=== PATIENT | male | born 1960 | race Caucasian/White ===

== ENCOUNTER 2018-01-18 08:13 | Emergency (ER) | payer OTHER ==
[~2018-01-18] VITALS: Ht 170.2 cm; Wt 88.0 kg
[2018-01-18 08:18] VITALS: BP 143/92
[2018-01-18 09:29] LABS: Basophils # (auto) 0.1 uL; Basophils % (auto) 0.5 % (0.0-2.0); Eosinophils # (auto) 0.1 uL; Eosinophils % (auto) 0.7 % (0.0-7.0); Hematocrit 45.2 % (41.0-53.0); Lymphocytes % (auto) 10.1 % (10.0-50.0); Mean Corpuscular Hemoglobin 28.5 pg (28.0-32.0); Mean Corpuscular Hgb Conc. 33.2 g/dL (32.0-36.0); Mean Corpuscular Volume 85.8 fL (80.0-100.0); Monocytes # (auto) 0.7 uL; Monocytes % (auto) 7.2 % (0.0-12.0); Neutrophils # (auto) 7.7 uL; Neutrophils % (auto) 81.5 % (37.0-80.0); Nucleated Red Blood Cells % 0.1 %; Platelet Count (auto) 379 10^3/uL (140-450); Red Blood Cells 5.27 10^6/uL (4.5-5.90); Red Cell Distribution Width 13.3 % (11.8-14.3); White Blood Cell 9.4 10^3/uL (4.4-10.8)
[2018-01-18 09:50] LABS: BUN/Creatinine Ratio 12.9; Bilirubin, Total 0.9 mg/dL (0.2-1.0); Calcium 9.4 mg/dL (8.5-10.1); Magnesium 2.3 mg/dL (1.6-2.6); Potassium 4.3 mmol/L (3.5-5.1); Total Protein 7.3 g/dL (6.4-8.2)
== END 2018-01-18 12:01 | disposition left against medical advice (07) ==
LOC: ER 08:13
DX: R10.13 Epigastric pain (principal)
CPT/HCPCS: 36415; 71046; 80053; 83735; 85025; 93005

== ENCOUNTER 2018-02-06 10:41 | Inpatient (IN) | payer OTHER ==
[~2018-02-06] VITALS: Ht 177.8 cm; Wt 86.4 kg
[2018-02-06] MEDS ORDERED: SODIUM CHLORIDE 0.9% 1,000 ML IVB ONE (11:06)
[2018-02-06] MEDS ORDERED: PANTOPRAZOLE 40 MG/10 ML VIAL IV STA (11:06)
[2018-02-06] MEDS ORDERED: MORPHINE SULFATE 4 MG/ML SYR/VIAL IV ONE (11:15)
[2018-02-06] MEDS ORDERED: METOCLOPRAMIDE HCL 5MG/ml INJ 2ml VIAL IV ONE (11:15)
[2018-02-06 11:32] LABS: Basophils # (auto) 0.1 uL; Basophils % (auto) 0.3 % (0.0-2.0); Eosinophils # (auto) 0 uL; Hematocrit 47.4 % (41.0-53.0); Hemoglobin 15.9 g/dL (13.5-17.5); Lymphocytes # (auto) 1.1 uL; Lymphocytes % (auto) 5.1 % (10.0-50.0); Mean Corpuscular Hemoglobin 28.5 pg (28.0-32.0); Mean Corpuscular Hgb Conc. 33.4 g/dL (32.0-36.0); Mean Corpuscular Volume 85.2 fL (80.0-100.0); Monocytes # (auto) 1.3 uL; Monocytes % (auto) 5.8 % (0.0-12.0); Neutrophils # (auto) 19.8 uL; Neutrophils % (auto) 88.8 % (37.0-80.0); Nucleated Red Blood Cells % 0.2 %; Platelet Count (auto) 435 10^3/uL (140-450); Red Blood Cells 5.57 10^6/uL (4.5-5.90); Red Cell Distribution Width 13.3 % (11.8-14.3); White Blood Cell 22.3 10^3/uL (4.4-10.8)
[2018-02-06 11:46] LABS: Albumin 4.4 g/dL (3.4-5.0); BUN/Creatinine Ratio 9.4; Bilirubin, Total 1.1 mg/dL (0.2-1.0); Calcium 9.7 mg/dL (8.5-10.1); Potassium 3.7 mmol/L (3.5-5.1); Total Protein 8.2 g/dL (6.4-8.2)
[2018-02-06] MEDS ORDERED: DEXTROSE (50%) 50ML SYRG IV PRN (16:45)
[2018-02-06] MEDS ORDERED: traMADol HCL 50 MG TAB PO PRN (16:45)
[2018-02-06] MEDS ORDERED: DOCUSATE SOD 100 MG CAP PO PRN (17:00)
[2018-02-06] MEDS ORDERED: cefTRIAXone 1GM/10ml IVPUSH 10 ML IV ONE (17:00)
[2018-02-06] MEDS ORDERED: ONDANSETRON HCL 4 MG/2 ML VIAL IV PRN (17:00)
[2018-02-06] MEDS ORDERED: ACETAMINOPHEN 325 MG TAB PO PRN (17:00)
[2018-02-06] MEDS: MORPHINE SULFATE 4 MG/ML SYR/VIAL IV PRN ×2 (17:38→21:46)
[2018-02-06] MEDS: SODIUM CHLORIDE 0.9% 1,000 ML IV SCH (17:44)
[2018-02-06] MEDS: LIDOCAINE 5% TOPICAL PATCH TOP SCH (17:53)
[2018-02-06] MEDS: ASCORBIC ACID 500 MG TAB PO SCH ×2 (17:53→21:46)
[2018-02-06] MEDS: MULTIPLE VITAMIN TAB PO SCH (17:53)
[2018-02-06] MEDS: ACCU-CHEK COMFORT CURVE STRIP VI SCH ×2 (17:59→21:32)
[2018-02-06 18:00] LABS: INR 0.95 (0.9-1.15); Prothrombin Time 10.3 sec (9.37-12.3)
[2018-02-06] MEDS: InsuLIN REG 1unit/0.01ml Soln (100units/ml) SC SCH ×2 (18:00→21:32)
[2018-02-06] MEDS: metroNIDAZOLE 500MG/100ML 100 ML IV SCH ×2 (18:04→23:31)
[2018-02-06 18:12] LABS: Lactic Acid w/Reflex 2.9 mmol/L (0.4-2.0)
[2018-02-06 20:08] LABS: Urine Bacteria FEW /hpf (None Seen); Urine Blood Negative /uL (Negative); Urine Hyaline Cast FEW /lpf (0 - 2); Urine Mucus MODERATE (None Seen); Urine Specific Gravity 1.029 (1.001-1.035); Urine WBC 4 /hpf (0 - 3)
[2018-02-06 20:57] VITALS: BP 131/76
[2018-02-06] MEDS: FAMOTIDINE 20 MG TAB PO SCH (21:45)
[2018-02-06] MEDS: PREGABALIN CAPSULE 75 MG CAP PO SCH (21:45)
[2018-02-06] MEDS: CARISOPRODOL 350 MG TAB PO SCH (21:46)
[2018-02-06 22:00] VITALS: BP 131/76
[2018-02-06 22:02] LABS: Lactic Acid w/Reflex 2.4 mmol/L (0.4-2.0)
[2018-02-06] MEDS: ALBUTEROL SULF 2.5 MG/0.5ML(0.5%) NEB SOLN NEB SCH (22:32)
[2018-02-06] MEDS: ALPRAZolam 0.5 MG TAB PO PRN (23:32)
[2018-02-07 01:13] VITALS: BP 131/76
[2018-02-07] MEDS: SODIUM CHLORIDE 0.9% 1,000 ML IV SCH ×4 (01:13→23:37)
[2018-02-07 05:00] VITALS: BP 127/78
[2018-02-07] MEDS: metroNIDAZOLE 500MG/100ML 100 ML IV SCH ×4 (06:02→23:31)
[2018-02-07] MEDS: PREGABALIN CAPSULE 75 MG CAP PO SCH ×3 (06:02→21:53)
[2018-02-07] MEDS ORDERED: PNEUMOCOCCAL VACC POLYS 25 MCG/0.5 ML VIAL IM ONE (06:30)
[2018-02-07] MEDS: MORPHINE SULFATE 4 MG/ML SYR/VIAL IV PRN ×3 (06:39→20:11)
[2018-02-07 06:43] LABS: Basophils # (auto) 0 uL; Basophils % (auto) 0.2 % (0.0-2.0); Eosinophils # (auto) 0 uL; Eosinophils % (auto) 0.2 % (0.0-7.0); Hematocrit 44.8 % (41.0-53.0); Hemoglobin 15.2 g/dL (13.5-17.5); Lymphocytes # (auto) 1.9 uL; Mean Corpuscular Hemoglobin 29.1 pg (28.0-32.0); Mean Corpuscular Volume 85.7 fL (80.0-100.0); Monocytes # (auto) 2.2 uL; Monocytes % (auto) 11.2 % (0.0-12.0); Neutrophils # (auto) 15.4 uL; Neutrophils % (auto) 78.4 % (37.0-80.0); Platelet Count (auto) 383 10^3/uL (140-450); Red Blood Cells 5.23 10^6/uL (4.5-5.90); Red Cell Distribution Width 13.3 % (11.8-14.3); White Blood Cell 19.6 10^3/uL (4.4-10.8)
[2018-02-07] MEDS: ALBUTEROL SULF 2.5 MG/0.5ML(0.5%) NEB SOLN NEB SCH ×3 (06:44→22:28)
[2018-02-07 07:24] LABS: Albumin 3.6 g/dL (3.4-5.0); Bilirubin, Total 1.5 mg/dL (0.2-1.0); Calcium 8.9 mg/dL (8.5-10.1); Potassium 3.8 mmol/L (3.5-5.1)
[2018-02-07] MEDS: cefTRIAXone 1GM/10ml IVPUSH 10 ML IV SCH (08:29)
[2018-02-07 08:53] VITALS: BP 146/91
[2018-02-07] MEDS: FENOFIBRATE 145 MG PO SCH (10:00)
[2018-02-07] MEDS: ASCORBIC ACID 500 MG TAB PO SCH ×2 (10:40→21:52)
[2018-02-07] MEDS: ALPRAZolam 0.5 MG TAB PO PRN ×2 (10:41→17:32)
[2018-02-07] MEDS: ZINC SULFATE 220 MG CAP PO SCH (10:41)
[2018-02-07] MEDS: MULTIPLE VITAMIN TAB PO SCH (10:41)
[2018-02-07] MEDS: FAMOTIDINE 20 MG TAB PO SCH ×2 (10:41→21:52)
[2018-02-07] MEDS: CARISOPRODOL 350 MG TAB PO SCH ×2 (10:41→21:52)
[2018-02-07] MEDS: PANTOPRAZOLE 40 MG TAB PO SCH (11:15)
[2018-02-07] MEDS: ACCU-CHEK COMFORT CURVE STRIP VI SCH (11:30)
[2018-02-07] MEDS: InsuLIN REG 1unit/0.01ml Soln (100units/ml) SC SCH (11:30)
[2018-02-07 12:27] VITALS: BP 120/79
[2018-02-07] MEDS: HYDROcodone-ACET 5/325MG TAB PO PRN (16:23)
[2018-02-07 16:58] VITALS: BP 140/86
[2018-02-07] MEDS: LIDOCAINE 5% TOPICAL PATCH TOP SCH (17:18)
[2018-02-07 22:00] VITALS: BP 118/84
[2018-02-08] MEDS: metroNIDAZOLE 500MG/100ML 100 ML IV SCH ×3 (05:34→17:55)
[2018-02-08 05:40] VITALS: BP 121/77
[2018-02-08] MEDS: ALBUTEROL SULF 2.5 MG/0.5ML(0.5%) NEB SOLN NEB SCH ×3 (06:07→22:00)
[2018-02-08 06:17] LABS: Basophils # (auto) 0.1 uL; Basophils % (auto) 0.7 % (0.0-2.0); Eosinophils # (auto) 0.3 uL; Eosinophils % (auto) 2.5 % (0.0-7.0); Hematocrit 42.8 % (41.0-53.0); Hemoglobin 14.4 g/dL (13.5-17.5); Lymphocytes # (auto) 1.6 uL; Lymphocytes % (auto) 13.6 % (10.0-50.0); Mean Corpuscular Hgb Conc. 33.7 g/dL (32.0-36.0); Monocytes # (auto) 1.4 uL; Monocytes % (auto) 12.2 % (0.0-12.0); Neutrophils # (auto) 8.4 uL; Platelet Count (auto) 270 10^3/uL (140-450); Red Blood Cells 4.97 10^6/uL (4.5-5.90); Red Cell Distribution Width 13.2 % (11.8-14.3); White Blood Cell 11.8 10^3/uL (4.4-10.8)
[2018-02-08 06:42] LABS: Albumin 3.1 g/dL (3.4-5.0); BUN/Creatinine Ratio 8.8; Bilirubin, Total 1.4 mg/dL (0.2-1.0); Calcium 8.9 mg/dL (8.5-10.1); Potassium 3.7 mmol/L (3.5-5.1); Total Protein 6.5 g/dL (6.4-8.2)
[2018-02-08] MEDS: MORPHINE SULFATE 4 MG/ML SYR/VIAL IV PRN ×2 (08:35→20:06)
[2018-02-08] MEDS: cefTRIAXone 1GM/10ml IVPUSH 10 ML IV SCH (08:36)
[2018-02-08 09:00] VITALS: BP 125/74
[2018-02-08] MEDS: FENOFIBRATE 145 MG PO SCH (10:00)
[2018-02-08] MEDS: ZINC SULFATE 220 MG CAP PO SCH (10:29)
[2018-02-08] MEDS: FAMOTIDINE 20 MG TAB PO SCH ×2 (10:29→21:58)
[2018-02-08] MEDS: ASCORBIC ACID 500 MG TAB PO SCH ×2 (10:29→21:58)
[2018-02-08] MEDS: MULTIPLE VITAMIN TAB PO SCH (10:29)
[2018-02-08] MEDS: PANTOPRAZOLE 40 MG TAB PO SCH (10:29)
[2018-02-08] MEDS: CARISOPRODOL 350 MG TAB PO SCH ×2 (10:30→21:58)
[2018-02-08] MEDS: D5W/SOD CHL 0.45%/KCL 20MEQ 1,000 ML IV SCH (10:36)
[2018-02-08 13:00] VITALS: BP 120/87
[2018-02-08] MEDS: PREGABALIN CAPSULE 75 MG CAP PO SCH ×2 (14:34→21:58)
[2018-02-08] MEDS: ALPRAZolam 0.5 MG TAB PO PRN ×2 (14:35→21:59)
[2018-02-08 17:00] VITALS: BP 127/87
[2018-02-08] MEDS: LIDOCAINE 5% TOPICAL PATCH TOP SCH (17:55)
[2018-02-08 22:45] VITALS: BP 121/77
[2018-02-09] MEDS: MORPHINE SULFATE 4 MG/ML SYR/VIAL IV PRN ×2 (04:28→16:13)
[2018-02-09] MEDS: D5W/SOD CHL 0.45%/KCL 20MEQ 1,000 ML IV SCH ×2 (05:00→14:32)
[2018-02-09 05:34] VITALS: BP 111/75
[2018-02-09] MEDS: metroNIDAZOLE 500MG/100ML 100 ML IV SCH ×5 (06:26→23:38)
[2018-02-09] MEDS: PREGABALIN CAPSULE 75 MG CAP PO SCH ×3 (06:27→22:18)
[2018-02-09 06:41] LABS: Basophils # (auto) 0 uL; Basophils % (auto) 0.4 % (0.0-2.0); Eosinophils # (auto) 0.7 uL; Eosinophils % (auto) 5.5 % (0.0-7.0); Hematocrit 43.4 % (41.0-53.0); Hemoglobin 14.5 g/dL (13.5-17.5); Lymphocytes # (auto) 1.9 uL; Lymphocytes % (auto) 14.9 % (10.0-50.0); Mean Corpuscular Hemoglobin 28.8 pg (28.0-32.0); Mean Corpuscular Hgb Conc. 33.5 g/dL (32.0-36.0); Mean Corpuscular Volume 85.9 fL (80.0-100.0); Monocytes # (auto) 1.3 uL; Monocytes % (auto) 9.9 % (0.0-12.0); Neutrophils # (auto) 8.9 uL; Neutrophils % (auto) 69.3 % (37.0-80.0); Platelet Count (auto) 371 10^3/uL (140-450); Red Blood Cells 5.05 10^6/uL (4.5-5.90); Red Cell Distribution Width 13.3 % (11.8-14.3); White Blood Cell 12.8 10^3/uL (4.4-10.8)
[2018-02-09] MEDS: ALBUTEROL SULF 2.5 MG/0.5ML(0.5%) NEB SOLN NEB SCH ×2 (06:46→14:00)
[2018-02-09 06:57] LABS: BUN/Creatinine Ratio 11.6; Calcium 9.6 mg/dL (8.5-10.1); Potassium 3.9 mmol/L (3.5-5.1)
[2018-02-09] MEDS ORDERED: ceFAZolin 1GM/100ML 100 ML IV ONE (08:06)
[2018-02-09] MEDS: cefTRIAXone 1GM/10ml IVPUSH 10 ML IV SCH (09:00)
[2018-02-09] MEDS: CARISOPRODOL 350 MG TAB PO SCH ×2 (10:00→22:17)
[2018-02-09] MEDS: ZINC SULFATE 220 MG CAP PO SCH (10:00)
[2018-02-09] MEDS: FAMOTIDINE 20 MG TAB PO SCH (10:00)
[2018-02-09] MEDS: ASCORBIC ACID 500 MG TAB PO SCH ×2 (10:00→22:16)
[2018-02-09] MEDS: FENOFIBRATE 145 MG PO SCH (10:00)
[2018-02-09] MEDS: PANTOPRAZOLE 40 MG TAB PO SCH (10:00)
[2018-02-09] MEDS: MULTIPLE VITAMIN TAB PO SCH (10:00)
[2018-02-09] MEDS ORDERED: ONDANSETRON HCL 4 MG/2 ML VIAL ONE (10:16)
[2018-02-09] MEDS ORDERED: PROPOFOL 10 MG/ML 20 ML IV ONE (10:16)
[2018-02-09] MEDS ORDERED: ROCURONIUM 10MG/ML 10ML VIAL IV ONE (10:16)
[2018-02-09] MEDS ORDERED: NEOSTIGMINE 1 MG/ML INJ (10mg/10ML VIAL) ONE (10:16)
[2018-02-09] MEDS ORDERED: MIDAZOLAM HCL 1MG/1ML-2 ML VIAL ONE (10:16)
[2018-02-09] MEDS ORDERED: GLYCOPYRROLATE 0.2 MG/ML 1ML VIAL ONE (10:16)
[2018-02-09] MEDS ORDERED: fentaNYL CITRATE 100 MCG/2 ML VL ONE (10:16)
[2018-02-09] MEDS ORDERED: MEPERIDINE HCL (50 MG/ML) 1 ML VIAL ONE (10:16)
[2018-02-09] MEDS ORDERED: SODIUM CHLORIDE LOCK 20 ML ONE (10:16)
[2018-02-09] MEDS ORDERED: POVIDONE IODINE 10 % TOPICAL OINT 30GM TOP ONE (10:28)
[2018-02-09] MEDS ORDERED: HYDROmorphone HCL 2 MG/ML VL ONE (13:09)
[2018-02-09] MEDS: HYDROmorphone HCL 2 MG/ML VL IV PRN ×2 (13:09→16:17)
[2018-02-09] MEDS ORDERED: METOCLOPRAMIDE HCL 5MG/ml INJ 2ml VIAL IV ONE (13:15)
[2018-02-09] MEDS ORDERED: ACETAMINOPHEN IV 100 ML IV ONE (13:35)
[2018-02-09] MEDS ORDERED: ACETAMINOPHEN IV 1000 MG/100ML (10MG/ML) IV ONE (13:45)
[2018-02-09] MEDS: ALPRAZolam 0.5 MG TAB PO PRN ×2 (14:52→23:37)
[2018-02-09] MEDS: MORPHINE SULFATE 8mg/ml INJ SDV IV PRN ×2 (16:13→22:16)
[2018-02-09 17:00] VITALS: BP 121/81
[2018-02-09] MEDS: LIDOCAINE 5% TOPICAL PATCH TOP SCH (17:42)
[2018-02-09] MEDS: HYDROcodone-ACET 5/325MG TAB PO PRN (18:43)
[2018-02-09 22:00] VITALS: BP 129/81
[2018-02-09] MEDS: TEMAZEPAM 15 MG CAP PO PRN (23:37)
[2018-02-10] MEDS: ALBUTEROL SULF 2.5 MG/0.5ML(0.5%) NEB SOLN NEB SCH ×4 (00:23→22:07)
[2018-02-10] MEDS: MORPHINE SULFATE 8mg/ml INJ SDV IV PRN ×3 (01:38→21:07)
[2018-02-10 04:45] VITALS: BP 129/81
[2018-02-10 05:00] VITALS: BP 107/65
[2018-02-10] MEDS: PREGABALIN CAPSULE 75 MG CAP PO SCH ×3 (06:17→22:18)
[2018-02-10] MEDS: metroNIDAZOLE 500MG/100ML 100 ML IV SCH ×3 (06:17→17:20)
[2018-02-10 06:59] LABS: Basophils # (auto) 0 uL; Basophils % (auto) 0.2 % (0.0-2.0); Eosinophils # (auto) 0.1 uL; Eosinophils % (auto) 1.3 % (0.0-7.0); Hematocrit 38.5 % (41.0-53.0); Hemoglobin 12.7 g/dL (13.5-17.5); Lymphocytes # (auto) 1.6 uL; Lymphocytes % (auto) 16.2 % (10.0-50.0); Mean Corpuscular Hemoglobin 28.1 pg (28.0-32.0); Mean Corpuscular Hgb Conc. 32.9 g/dL (32.0-36.0); Mean Corpuscular Volume 85.6 fL (80.0-100.0); Monocytes # (auto) 1.2 uL; Monocytes % (auto) 11.5 % (0.0-12.0); Neutrophils # (auto) 7.1 uL; Neutrophils % (auto) 70.8 % (37.0-80.0); Nucleated Red Blood Cells % 0.1 %; Platelet Count (auto) 364 10^3/uL (140-450); Red Cell Distribution Width 12.9 % (11.8-14.3)
[2018-02-10 07:15] LABS: Potassium 3.7 mmol/L (3.5-5.1)
[2018-02-10 07:29] LABS: Albumin 2.9 g/dL (3.4-5.0); BUN/Creatinine Ratio 9.7; Calcium 8.8 mg/dL (8.5-10.1); Magnesium 2.2 mg/dL (1.6-2.6)
[2018-02-10 07:31] LABS: Bilirubin, Total 0.7 mg/dL (0.2-1.0); Total Protein 6.2 g/dL (6.4-8.2)
[2018-02-10] MEDS: HYDROmorphone HCL 2 MG/ML VL IV PRN (08:37)
[2018-02-10 09:00] VITALS: BP 119/77
[2018-02-10] MEDS: FENOFIBRATE 145 MG PO SCH (10:00)
[2018-02-10] MEDS: PANTOPRAZOLE 40 MG TAB PO SCH (10:02)
[2018-02-10] MEDS: ASCORBIC ACID 500 MG TAB PO SCH ×2 (10:02→22:17)
[2018-02-10] MEDS: MULTIPLE VITAMIN TAB PO SCH (10:02)
[2018-02-10] MEDS: ZINC SULFATE 220 MG CAP PO SCH (10:02)
[2018-02-10] MEDS: CARISOPRODOL 350 MG TAB PO SCH ×2 (10:02→22:17)
[2018-02-10] MEDS: cefTRIAXone 1GM/10ml IVPUSH 10 ML IV SCH (10:03)
[2018-02-10] MEDS: ALPRAZolam 0.5 MG TAB PO PRN ×2 (10:04→22:18)
[2018-02-10 13:00] VITALS: BP 140/89
[2018-02-10 17:00] VITALS: BP 123/83
[2018-02-10] MEDS: LIDOCAINE 5% TOPICAL PATCH TOP SCH (17:24)
[2018-02-10] MEDS: D5W/SOD CHL 0.45%/KCL 20MEQ 1,000 ML IV SCH (21:00)
[2018-02-10 22:00] VITALS: BP 119/74
[2018-02-10] MEDS: TEMAZEPAM 15 MG CAP PO PRN (22:18)
[2018-02-11] MEDS: metroNIDAZOLE 500MG/100ML 100 ML IV SCH ×4 (00:26→17:38)
[2018-02-11] MEDS: MORPHINE SULFATE 8mg/ml INJ SDV IV PRN ×2 (04:09→22:05)
[2018-02-11 05:10] VITALS: BP 133/82
[2018-02-11] MEDS: PREGABALIN CAPSULE 75 MG CAP PO SCH ×3 (06:00→22:06)
[2018-02-11] MEDS: ALBUTEROL SULF 2.5 MG/0.5ML(0.5%) NEB SOLN NEB SCH ×3 (06:00→22:00)
[2018-02-11 09:12] VITALS: BP 137/94
[2018-02-11] MEDS: FENOFIBRATE 145 MG PO SCH (10:00)
[2018-02-11] MEDS: ALPRAZolam 0.5 MG TAB PO PRN ×2 (10:08→22:05)
[2018-02-11] MEDS: ZINC SULFATE 220 MG CAP PO SCH (10:08)
[2018-02-11] MEDS: PANTOPRAZOLE 40 MG TAB PO SCH (10:08)
[2018-02-11] MEDS: MULTIPLE VITAMIN TAB PO SCH (10:08)
[2018-02-11] MEDS: cefTRIAXone 1GM/10ml IVPUSH 10 ML IV SCH (10:09)
[2018-02-11] MEDS: ASCORBIC ACID 500 MG TAB PO SCH ×2 (10:09→22:05)
[2018-02-11] MEDS: CARISOPRODOL 350 MG TAB PO SCH ×2 (10:09→22:06)
[2018-02-11 12:20] VITALS: BP 127/88
[2018-02-11 16:39] VITALS: BP 129/88
[2018-02-11] MEDS: D5W/SOD CHL 0.45%/KCL 20MEQ 1,000 ML IV SCH (17:00)
[2018-02-11] MEDS: LIDOCAINE 5% TOPICAL PATCH TOP SCH (17:00)
[2018-02-11 22:00] VITALS: BP 126/81
[2018-02-11] MEDS: TEMAZEPAM 15 MG CAP PO PRN (22:06)
[2018-02-12] MEDS: metroNIDAZOLE 500MG/100ML 100 ML IV SCH ×3 (00:21→13:10)
[2018-02-12] MEDS: HYDROcodone-ACET 5/325MG TAB PO PRN (00:49)
[2018-02-12 05:00] VITALS: BP 116/76
[2018-02-12] MEDS: ALBUTEROL SULF 2.5 MG/0.5ML(0.5%) NEB SOLN NEB SCH ×3 (06:00→14:00)
[2018-02-12] MEDS: PREGABALIN CAPSULE 75 MG CAP PO SCH ×2 (06:11→15:30)
[2018-02-12 07:55] VITALS: BP 130/86
[2018-02-12 08:00] VITALS: BP 130/86
[2018-02-12] MEDS: ZINC SULFATE 220 MG CAP PO SCH (09:58)
[2018-02-12] MEDS: cefTRIAXone 1GM/10ml IVPUSH 10 ML IV SCH (09:58)
[2018-02-12] MEDS: MULTIPLE VITAMIN TAB PO SCH (09:58)
[2018-02-12] MEDS: PANTOPRAZOLE 40 MG TAB PO SCH (09:59)
[2018-02-12] MEDS: CARISOPRODOL 350 MG TAB PO SCH (09:59)
[2018-02-12] MEDS: FENOFIBRATE 145 MG PO SCH (10:00)
[2018-02-12] MEDS: ASCORBIC ACID 500 MG TAB PO SCH (10:10)
[2018-02-12] MEDS: ALPRAZolam 0.5 MG TAB PO PRN (10:11)
[2018-02-12 11:53] VITALS: BP 127/92
[2018-02-12] MEDS ORDERED: LEVO500T21 PO (12:11)
[2018-02-12] MEDS ORDERED: METR500T PO (12:11)
[2018-02-12 13:08] LABS: BUN/Creatinine Ratio 13.3; Calcium 9.5 mg/dL (8.5-10.1); Potassium 3.8 mmol/L (3.5-5.1)
[2018-02-12 15:50] VITALS: BP 127/92
[2018-02-12 16:00] VITALS: BP 117/74
[2018-02-12] MEDS: LIDOCAINE 5% TOPICAL PATCH TOP SCH (17:00)
== END 2018-02-12 17:30 | disposition home or self-care (01) | DRG 854 ==
LOC: EDBD 10:41 → ER 10:41 → OVERFLOW 10:42 → WEST WING 18:19
PROVIDERS: ADMIT Internal Medicine; ATTEND Internal Medicine
PROC: 0FT44ZZ Resection of Gallbladder, Percutaneous Endoscopic Approach (ICD-10-PCS; principal; 2018-02-09 10:30)
DX: A41.9 Sepsis, unspecified organism (principal); K80.00 Calculus of gallbladder with acute cholecystitis without obstruction; K76.0 Fatty (change of) liver, not elsewhere classified; E11.22 Type 2 diabetes mellitus with diabetic chronic kidney disease; E78.5 Hyperlipidemia, unspecified; E86.0 Dehydration; J44.9 Chronic obstructive pulmonary disease, unspecified; K21.9 Gastro-esophageal reflux disease without esophagitis; I12.9 Hypertensive chronic kidney disease with stage 1 through stage 4 chronic kidney disease, or unspecified chronic kidney disease; N18.2 Chronic kidney disease, stage 2 (mild); G89.29 Other chronic pain; M54.5 Low back pain; E66.01 Morbid (severe) obesity due to excess calories; Z68.27 Body mass index [BMI] 27.0-27.9, adult; Z82.49 Family history of ischemic heart disease and other diseases of the circulatory system; Z83.3 Family history of diabetes mellitus; Z23 Encounter for immunization
CPT/HCPCS: 36415; 71045; 76705; 78226; 80048; 80053; 80061; 81001; 82150; 82962; 83036; 83605; 83690; 83735; 85025; 85610; 86850; 86900; 86901; 87040; 87493; 93005; 93306; 94640; 94761; 96361; 96374; 96375; 96376; C9113; J0131; J0690; J2250; J2270; J2405; J2704; J3490